=== PATIENT | female | born 1975 | race Native Hawaiian/Other Pacific Islander ===

== ENCOUNTER 2019-02-20 12:06 | Emergency (ER) | payer OTHER ==
[~2019-02-20] VITALS: Ht 165.1 cm; Wt 90.7 kg
[2019-02-20 12:13] VITALS: TEMP 98.2
[2019-02-20] MEDS ORDERED: NEXIUM 24HR20 MG PO (12:21)
[2019-02-20 13:36] VITALS: BP 142/93
== END 2019-02-20 13:36 | disposition home or self-care (01) ==
LOC: ED 12:06
DX: S86.811A Strain of other muscle(s) and tendon(s) at lower leg level, right leg, initial encounter (principal); X50.1XXA Overexertion from prolonged static or awkward postures, initial encounter
CPT/HCPCS: 99283

== ENCOUNTER 2019-03-04 08:54 | Emergency (ER) | payer OTHER ==
[~2019-03-04] VITALS: Ht 165.1 cm; Wt 90.7 kg
[~2019-03-04 08:54] MED LIST: NEXIUM 24HR20 MG PO
[2019-03-04 09:02] VITALS: BP 113/85; TEMP 97
== END 2019-03-04 09:56 | disposition home or self-care (01) ==
LOC: ED 08:54
PROC: 2W3QXYZ Immobilization of Right Lower Leg using Other Device (ICD-10-PCS; principal; 2019-03-04)
DX: S83.8X1A Sprain of other specified parts of right knee, initial encounter (principal); W17.89XA Other fall from one level to another, initial encounter; Y93.89 Activity, other specified; Y92.89 Other specified places as the place of occurrence of the external cause
CPT/HCPCS: 99282

== ENCOUNTER 2019-03-09 11:35 | Emergency (ER) | payer OTHER ==
[~2019-03-09] VITALS: Ht 165.1 cm; Wt 90.7 kg
[2019-03-09 12:50] VITALS: BP 151/92; TEMP 97.7
== END 2019-03-09 12:50 | disposition home or self-care (01) ==
LOC: ED 11:35
DX: S93.402A Sprain of unspecified ligament of left ankle, initial encounter (principal); S90.02XA Contusion of left ankle, initial encounter; V02.00XA Pedestrian on foot injured in collision with two- or three-wheeled motor vehicle in nontraffic accident, initial encounter
CPT/HCPCS: 99282; 99283

== ENCOUNTER 2020-07-19 09:18 | Emergency (ER) | payer OTHER ==
[~2020-07-19] VITALS: Ht 165.1 cm; Wt 90.7 kg
[2020-07-19 09:28] VITALS: TEMP 97.8
[2020-07-19 12:05] VITALS: BP 132/74
== END 2020-07-19 12:06 | disposition home or self-care (01) ==
LOC: ED 09:18
PROC: 2W3LX1Z Immobilization of Right Lower Extremity using Splint (ICD-10-PCS; principal; 2020-07-19)
DX: S80.01XA Contusion of right knee, initial encounter (principal); S83.8X1A Sprain of other specified parts of right knee, initial encounter; W18.39XA Other fall on same level, initial encounter; Y92.89 Other specified places as the place of occurrence of the external cause
CPT/HCPCS: 99283

== ENCOUNTER 2021-01-21 09:42 | Emergency (ER) | payer OTHER ==
[~2021-01-21] VITALS: Ht 165.1 cm; Wt 81.6 kg
[2021-01-21 11:55] VITALS: BP 158/98; TEMP 99.2
== END 2021-01-21 11:55 | disposition home or self-care (01) ==
LOC: ED 09:42
DX: S80.01XA Contusion of right knee, initial encounter (principal); W13.2XXA Fall from, out of or through roof, initial encounter; Y92.89 Other specified places as the place of occurrence of the external cause
CPT/HCPCS: 99283

== ENCOUNTER 2021-03-14 10:18 | Emergency (ER) | payer OTHER ==
[~2021-03-14] VITALS: Ht 165.1 cm; Wt 81.6 kg
[2021-03-14 10:20] VITALS: BP 144/80; TEMP 98.1
== END 2021-03-14 11:55 | disposition home or self-care (01) ==
LOC: ED 10:18
PROC: 2W3LX1Z Immobilization of Right Lower Extremity using Splint (ICD-10-PCS; principal; 2021-03-14)
DX: S80.01XA Contusion of right knee, initial encounter (principal); W17.89XA Other fall from one level to another, initial encounter; Y92.89 Other specified places as the place of occurrence of the external cause
CPT/HCPCS: 99283

== ENCOUNTER 2021-05-29 10:35 | Emergency (ER) | payer OTHER ==
[~2021-05-29] VITALS: Ht 165.1 cm; Wt 81.6 kg
[2021-05-29 10:40] VITALS: TEMP 97.2
[2021-05-29 12:26] VITALS: BP 129/85
== END 2021-05-29 12:26 | disposition home or self-care (01) ==
LOC: ED 10:35
PROC: 2W3LX1Z Immobilization of Right Lower Extremity using Splint (ICD-10-PCS; principal; 2021-05-29)
DX: S83.8X1A Sprain of other specified parts of right knee, initial encounter (principal); M17.11 Unilateral primary osteoarthritis, right knee; W13.2XXA Fall from, out of or through roof, initial encounter; Y92.098 Other place in other non-institutional residence as the place of occurrence of the external cause
CPT/HCPCS: 96372; 99283; J2360

== ENCOUNTER 2021-06-26 17:27 | Emergency (ER) | payer OTHER ==
[~2021-06-26] VITALS: Ht 165.1 cm; Wt 77.1 kg
[2021-06-26 19:21] VITALS: BP 136/90; TEMP 96.8
== END 2021-06-26 19:21 | disposition home or self-care (01) ==
LOC: ED 17:27
PROC: 2W3QXYZ Immobilization of Right Lower Leg using Other Device (ICD-10-PCS; principal; 2021-06-26)
DX: M23.91 Unspecified internal derangement of right knee (principal)
CPT/HCPCS: 99283

== ENCOUNTER 2021-07-13 09:09 | Emergency (ER) | payer OTHER ==
[~2021-07-13] VITALS: Ht 165.1 cm; Wt 77.1 kg
[2021-07-13 10:04] VITALS: BP 133/85; TEMP 98.9
[2021-07-13] MEDS ORDERED: IBU400 MG PO (14:03)
== END 2021-07-13 10:10 | disposition home or self-care (01) ==
LOC: ED 09:09
PROC: 2W3LX1Z Immobilization of Right Lower Extremity using Splint (ICD-10-PCS; principal; 2021-07-13)
DX: S83.8X1A Sprain of other specified parts of right knee, initial encounter (principal); W13.2XXA Fall from, out of or through roof, initial encounter; Y92.098 Other place in other non-institutional residence as the place of occurrence of the external cause
CPT/HCPCS: 96372; 99283; J2270; J2405

== ENCOUNTER 2021-11-01 09:14 | Emergency (ER) | payer OTHER ==
[~2021-11-01] VITALS: Ht 165.1 cm; Wt 72.6 kg
[~2021-11-01 09:14] MED LIST changes: +IBU400 MG PO
[2021-11-01 10:30] VITALS: BP 140/90; TEMP 98.9
== END 2021-11-01 10:34 | disposition home or self-care (01) ==
LOC: ED 09:14
PROC: 2W3LX1Z Immobilization of Right Lower Extremity using Splint (ICD-10-PCS; principal; 2021-11-01)
DX: S80.01XA Contusion of right knee, initial encounter (principal); S86.811A Strain of other muscle(s) and tendon(s) at lower leg level, right leg, initial encounter; V80.010A Animal-rider injured by fall from or being thrown from horse in noncollision accident, initial encounter; Y93.52 Activity, horseback riding; Y92.89 Other specified places as the place of occurrence of the external cause
CPT/HCPCS: 96372; 99283; J1170; J2550

== ENCOUNTER 2022-01-09 10:48 | Emergency (ER) | payer OTHER ==
[~2022-01-09] VITALS: Ht 165.1 cm; Wt 72.6 kg
[2022-01-09 10:50] VITALS: TEMP 98.3
[2022-01-09 12:58] VITALS: BP 137/79
== END 2022-01-09 12:58 | disposition home or self-care (01) ==
LOC: ED 10:48
DX: M25.461 Effusion, right knee (principal); S89.81XA Other specified injuries of right lower leg, initial encounter; W11.XXXA Fall on and from ladder, initial encounter; Y92.89 Other specified places as the place of occurrence of the external cause
CPT/HCPCS: 99283

== ENCOUNTER 2022-01-26 09:24 | Emergency (ER) | payer OTHER ==
[~2022-01-26] VITALS: Ht 165.1 cm; Wt 72.6 kg
[2022-01-26 09:30] VITALS: TEMP 98
[2022-01-26 11:42] VITALS: BP 136/84
== END 2022-01-26 11:42 | disposition home or self-care (01) ==
LOC: ED 09:24
PROC: 2W3LX1Z Immobilization of Right Lower Extremity using Splint (ICD-10-PCS; principal; 2022-01-26)
DX: S83.8X1A Sprain of other specified parts of right knee, initial encounter (principal); W13.2XXA Fall from, out of or through roof, initial encounter; Y92.098 Other place in other non-institutional residence as the place of occurrence of the external cause
CPT/HCPCS: 99283; J1885; J2270

== ENCOUNTER 2022-02-03 08:11 | Emergency (ER) | payer OTHER ==
[~2022-02-03] VITALS: Ht 165.1 cm; Wt 72.6 kg
[2022-02-03 08:20] VITALS: TEMP 97
[2022-02-03 10:35] VITALS: BP 125/66
== END 2022-02-03 10:35 | disposition home or self-care (01) ==
LOC: ED 08:11
PROC: 2W3LX1Z Immobilization of Right Lower Extremity using Splint (ICD-10-PCS; principal; 2022-02-03)
DX: S89.81XA Other specified injuries of right lower leg, initial encounter (principal); S80.01XA Contusion of right knee, initial encounter; W17.89XA Other fall from one level to another, initial encounter; Y92.89 Other specified places as the place of occurrence of the external cause
CPT/HCPCS: 96372; 99283; J2175; J2550

== ENCOUNTER 2022-03-29 10:47 | Emergency (ER) | payer OTHER ==
[~2022-03-29] VITALS: Ht 165.1 cm; Wt 72.6 kg
[2022-03-29 10:53] VITALS: TEMP 98.3
[2022-03-29 13:55] VITALS: BP 136/53
== END 2022-03-29 13:55 | disposition home or self-care (01) ==
LOC: ED 10:47
PROC: 2W3LX1Z Immobilization of Right Lower Extremity using Splint (ICD-10-PCS; principal; 2022-03-29)
DX: S83.8X1A Sprain of other specified parts of right knee, initial encounter (principal); W13.2XXA Fall from, out of or through roof, initial encounter; Y92.89 Other specified places as the place of occurrence of the external cause
CPT/HCPCS: 81025; 96372; 99283; J2270; J2405